=== PATIENT | male | born 1960 | race Caucasian/White ===

== ENCOUNTER 2025-02-08 10:17 | Outpatient (OUT) | payer OTHER, SELFPAY ==
--- OUTSIDE RECORDS SUMMARY | 2025-02-08 10:25 | XMS_ITS | Continuity of Care Document ---
Author Organization [facility] Address [address] [facility] [address] [place] [address] Insurance Providers Payer Plan Claims Address Claims Phone Policy Number Group Number Relation Employer Guarantor Name Guarantor Guarantor Address Guarantor Phone [address], [place] [address]wvl: [id number] [place] [address] [place], [place] [id number] [place] [address] [place], [place] [address]Cdlvoi /[id number] [facility] [address] Problems Unknown Problems Results Test Result Date/Time Value / Unit Interp. Refere [facility] Lab Report Corbin Luis.pdf Allergies, adverse reactions, alerts No known allergies and adverse reactions Medications No administered medications reported Vital Signs No vital signs reported Social History No smoking Hx information available
--- OUTSIDE RECORDS SUMMARY | 2025-02-08 10:25 | XMS_ITS | Clinical Summary ---
Author Organization [facility] Address [address] [facility], [address] [place] [address] Care Team Providers Care Membership Advisor Name Role Phone John Pickering MD Primary Care Provider [phone] Allergies No known active allergies Medications MedicationSigDispense QuantityRefillsLast FilledStart DateEnd DateStatus aspirin 81 MG EC tablet Take 81 mg by mouth dailyActive atorvastatin (LIPITOR) 80 MG tablet Take 80 mg by mouth dailyActive buPROPion (WELLBUTRIN XL) 300 MG extended release tablet Take 300 mg by mouth every morningActive carvedilol (COREG) 12.5 MG tablet Take 12.5 mg by mouth 2 times daily (with meals)Active clopidogrel (PLAVIX) 75 MG tablet Take 75 mg by mouth dailyActive canagliflozin (INVOKANA) 300 MG TABS tablet Take 300 mg by mouth every morning (before breakfast)Active SITagliptin (JANUVIA) 100 MG tablet Take 100 mg by mouth dailyActive metFORMIN (GLUCOPHAGE) 1000 MG tablet Take 1,000 mg by mouth 2 times daily (with meals)Active losartan (COZAAR) 25 MG tablet Take 25 mg by mouth dailyActive fenofibrate (TRICOR) 145 MG tablet Take 145 mg by mouth dailyActive gabapentin (NEURONTIN) 100 MG capsule TAKE 2 PILLS THREE TIMES PER DAY 180 capsule 06/20/2020ctive gabapentin (NEURONTIN) 300 MG capsule Take 1 capsule by mouth 3 times daily for 30 days. 90 capsule 06/30/2020ctive Family History Medical HistoryRelationNameCommentsCoronary Art DisFatherHeart DiseaseFather Coronary Art DisMotherHeart DiseaseMotherHigh Blood PressureMotherStrokeMother RelationNameStatusCommentsFatherMother Social History Tobacco UseTypesPacks/DayYears UsedDateSmoking Tobacco: Never AssessedSmokeless Tobacco: NeverSex and Gender InformationValueDate RecordedSex Assigned at Not on fileLegal AsnIcle6605/31/2012 8:43 PM ESTGender IdentityNot on fileSexual OrientationNot on file Last Filed Vital Signs Vital SignReadingTime TakenCommentsBlood Pressure--Pulse--Hbhqojsppuy91.3 ??C (97.3 ??F)06/30/2020 2:55 PM ESTRespiratory Rate--Oxygen Saturation--Inhaled Oxygen Concentration--Djtqgi193.4 kg (283 lb)06/30/2020 2:55 PM UCSOvfgdv282.9 cm (6')06/30/2020 2:55 PM ESTBody Mass Index38.38006/30/2020 2:55 PM EST Plan of Treatment Not on file Care Teams Team MemberRelationshipSpecialtyStart DateEnd John Pickering MD [address] [place] [address] PCP - GeneralFamily Medicine05/12/20
--- OUTSIDE RECORDS SUMMARY | 2025-02-08 10:25 | XMS_ITS | Clinical Summary ---
Author Organization [facility] Address [address] [place] [address] Care Team Providers Care Aircrewman Name Role Phone Bonnie Sands MD Primary Care Provider [phone] Allergies Active AllergyReactionsCriticalityNoted IpbpMhhsztdnBwmcqnxkht81/18/2022 GjfxyvjepsZxzws77/16/2021 Medications MedicationSigDispense QuantityRefillsLast FilledStart DateEnd DateStatus aspirin 81 mg chewable tablet Chew 1 tablet every day by oral route.Active atorvastatin (Lipitor) 80 mg tablet Take 1 tablet every day by oral route for 30 days.Active buPROPion XL (Wellbutrin XL) 300 mg 24 hr tablet Take 1 tablet every day by oral route.02/20/2016Active upsclerbjmt-twawwyase-tsaebdim 100-62.5-25 mcg blister with device Inhale 1 puff every day by inhalation route.Active allopurinol (Zyloprim) 300 mg tablet Take 300 mg by mouth in the morning.Active semaglutide (Ozempic) 1 mg/dose (4 mg/3 mL) pen injector Inject 1 mg under the skin every 7 (seven) days.Active bumetanide (Bumex) 2 mg tablet Indications:Benign hypertensive heart disease with heart failure (CMS/HCC)Take 1 tablet (2 mg) by mouth in the morning. 90 tablet ctive clopidogrel (Plavix) 75 mg tablet Indications:Benign hypertensive heart disease with heart failure (CMS/HCC)Take 1 tablet (75 mg) by mouth in the morning. 90 tablet ctive spironolactone (Aldactone) 25 mg tablet Indications:Benign hypertensive heart disease with heart failure (CMS/HCC)Take 1 tablet (25 mg) by mouth once daily as directed. 90 tablet ctive empagliflozin (Jardiance) 25 mg Take by mouth.Active carvedilol (Coreg) 25 mg tablet Indications:Benign hypertensive heart disease with heart failure (CMS/HCC)Take 1 tablet (25 mg) by mouth with breakfast and with evening meal. 180 tablet ctive hydrALAZINE (Apresoline) 100 mg tablet Indications:Benign hypertensive heart disease with heart failure (CMS/HCC)Take 1 tablet (100 mg) by mouth two times daily. 180 tablet ctive losartan (Cozaar) 25 mg tablet Indications:Benign hypertensive heart disease with heart failure (CMS/HCC)Take 1 tablet (25 mg) by mouth once daily as directed. 90 tablet ctive Active Problems ProblemNoted DateDiagnosed DateEncounter for screening, cfrlcnkjezg51/26/2024 Erectile ypgayxfyqfd70/26/2024Erectile dysfunction due to arterial insufficiency 03/16/20248242Kxnecpbsecgl97/26/3890Yiuadjatxhtqzd12/26/2024Hyperparathyroidism 03/16/2024Hypertensive awlfsniqbir49/26/2024Gout, rfiswoncper49/26/2024 Obstructive sleep apnea of adult03/16/2024Stage 3b chronic kidney disease 03/16/2024Type 2 diabetes jwekjgzd28/26/2024Type 2 diabetes mellitus with diabetic nmqjdrlqjqa76/26/2024Type 2 diabetes mellitus with diabetic qskdztixqrlnnu39/26/2024enign essential mzbtzqesrfzi49ody mass index (BMI) 39.0-39.9, adulthronic ischemic heart disease, jehjyddzaqh24hronic obstructive pulmonary disease, mxidsqrazss24ongestive heart ehhwtac5509/01/2019Coronary kxctfeqnvepgmlin11/13/2020Hypertensive lfyfxagy07/13/2020 Social History Tobacco UseTypesPacks/DayYears UsedDateSmoking Tobacco: FormerCigarettesQuit: 2008Smokeless Tobacco: Never Tobacco Cessation:Counseling Given: Not Answered Alcohol UseStandard Drinks/WeekCommentsYes2 (1 standard drink = 0.6 oz pure alcohol)UT Safety & EnvironmentAnswerDate RecordedFear of Current or Ex-Partner Not on file06/12/2023Emotionally AbusedNot on file06/12/2023hysically AbusedNot on file06/12/2023Sexually AbusedNot on file06/12/2023hysically or Sexually AbusedNot on file06/12/2023Sex and Gender InformationValueDate RecordedSex Assigned at BirthNot on fileLegal TilNodz4210/17/2021 10:16 PM EDTGender Identity Not on fileSexual OrientationNot on file Last Filed Vital Signs Vital SignReadingTime TakenCommentsBlood Cfydgzzo308/7403/16/2024 3:07 PM EST Vtxsb007703/16/2024 3:07 PM NFKOrqylehzmka81 ??C (98.6 ??F)05/29/2021 3:03 PM EST Respiratory Rate--Oxygen Aotaaqhhbi80%03/16/2024 3:07 PM ESTInhaled Oxygen Concentration--Pitrif108 kg (266 lb)03/16/2024 3:07 PM QUVMyomii825.9 cm (6') 03/16/2024 3:07 PM ESTBody Mass Index36.0803/16/2024 3:07 PM EST Plan of Treatment DateTypeDepartmentCare Team (Latest Contact Info)Cyrcufepjef63/19/2025 1:30 PM ESTOffice Visit [facility] [address] [place] [address] Guadalupe Sutton MD [address] [facility] [place] [address] Health MaintenanceDue DateLast DoneCommentsCT Ugvslcdjubzb66/07/1962Colonoscopy 2Colorectal Cancer Ofrsqbcuh89/07/1962Diabetes: Hemoglobin A1C 1961FIT-DNA1961FIT1961FOBT1960 0662Vzrutwdlxcxlj24/07/1962 Diabetes: Retinopathy Xxxwebixp95/07/1972Depression Qwnsbkfbh20/07/1974COVID-19 Vaccine (2024- season), 05/13/2023, 02/06/2021, Additional history existsInfluenza Vaccine (#1), 01/17/2023, 06/14/2022, Additional history existsAdult Etvfoef37 Pneumococcal Vaccine: Pediatrics (0 to 5 Years) and At-Risk Patients (6 to 64 Years)Iqzkcfddo75/24/2023Zoster XvhczbqxNsriabajc85/21/2025, 05/13/2024HIB VaccinesAged OutNo longer eligible based on patient's age to complete this topic HPV VaccinesAged OutNo longer eligible based on patient's age to complete this topicIPV VaccinesAged OutNo longer eligible based on patient's age to complete this topicMeningococcal B VaccineAged OutNo longer eligible based on patient's age to complete this topicMeningococcal VaccineAged OutNo longer eligible based on patient's age to complete this topicRotavirus VaccinesAged OutNo longer eligible based on patient's age to complete this topic Insurance Care Teams Team MemberRelationshipSpecialtyStart DateEnd Date Bonnie Sands MD [facility] [address] PCP [facility]03/06/23
--- OUTSIDE RECORDS SUMMARY | 2025-02-08 10:25 | XMS_ITS | Encounter Summary ---
Author Organization [facility] Address [id number] [place] [address] Care Team Providers Care Family Mediator Name Role Phone John Pickering MD Primary Care Provider [phone] Encounter Details DateTypeDepartmentCare Team (Latest Contact Info)Qefiecfwhdg20/07/2025Telephone [facility] [address] [place] [id number] Angie Bermudez CMA Social History Tobacco UseTypesPacks/DayYears UsedDateSmoking Tobacco: FormerCigarettesQuit: 12/11/2007Smokeless Tobacco: NeverAlcohol UseStandard Drinks/WeekCommentsYes0 (1 standard drink = 0.6 oz pure alcohol)6 pack of beer a dayChildcareAnswerDate AtitwyscHkppxgowpLrnzuvb75/12/2019EmploymentAnswerDate RecordedEmploymentUnknown 09/30/2018Purpose - LifeAnswerDate RecordedPurpose and direction in lifeUnknown 1Sex and Gender InformationValueDate RecordedSex Assigned at BirthNot on fileLegal NnnLmoq7211/24/2014 11:46 AM EDTGender IdentityNot on fileSexual OrientationNot on filedocumented as of this encounter Miscellaneous Notes * Telephone Encounter - Angie Bermudez CMA - 01/25/2025 11:34 AM EDT 01/25/25-OIL DISPENSER REFERRAL JENNIE AVILA ISCHEMIC HEART DISEASE, PHONED PT TO SCHEDULE APPT AND PER PT FOLLOWS WITH CARDIOLOGY AT [facility],PER PT APPT NOT NEEDED AT THIS TIME, JSL documented in this encounter Plan of Treatment Not on file documented as of this encounter Visit Diagnoses Not on filedocumented in this encounter Care Teams Team MemberRelationshipSpecialtyStart DateEnd Date John Pickering MD PCP - Hwiledy83/13/16documented as of this encounter
--- OUTSIDE RECORDS SUMMARY | 2025-02-08 10:25 | XMS_ITS | Clinical Summary ---
Author Organization [facility] Address [id number] [place] [address] Care Team Providers Care Product Management Manager Name Role Phone John Pickering MD Primary Care Provider [phone] Allergies Active AllergyReactionsCriticalityNoted QdffWjsdpcatGvzhktrqeuMttqx92/16/2021 Medications MedicationSigDispense QuantityRefillsLast FilledStart DateEnd DateStatus SITagliptin (JANUVIA) 100 mg tablet Take 100 mg by mouth daily.02/20/2016Active buPROPion XL (WELLBUTRIN XL) 300 mg 24 hr tablet Take 300 mg by mouth daily.02/20/2016Active carvediloL (COREG) 25 mg tablet Take 25 mg by mouth in the morning and 25 mg at noon and 25 mg before bedtime. Active clopidogreL (PLAVIX) 75 mg tablet Take 75 mg by mouth daily.Active dapagliflozin propanediol (FARXIGA ORAL) Take 5 mg by mouth daily.08/26/2020ctive losartan (COZAAR) 25 mg tablet Take 1 tablet (25 mg total) by mouth daily. 30 tablet ctive aspirin 81 mg chewable tablet Chew 81 mg and swallow in the morning.Active fenofibrate (TRICOR) 145 mg tablet Take 145 mg by mouth in the morning.Active atorvastatin (LIPITOR) 80 mg tablet Take 80 mg by mouth in the morning.Active spironolactone (ALDACTONE) 25 mg tablet Indications:Stage 3a chronic kidney disease (CMS-HCC)Take 0.5 tablets (12.5 mg total) by mouth in the morning and 0.5 tablets (12.5 mg total) before bedtime. 45 tablet ctive bumetanide (BUMEX) 2 mg tablet Indications:Stage 3a chronic kidney disease (CMS-HCC)Take 1 tablet (2 mg total) by mouth daily. 90 tablet ctive Active Problems No known active problems Encounters DateTypeDepartmentCare WstmAyebrmzxovi94/07/2025Telephone [facility] [address] [place] [address] Angie Bermudez CMA from Last 3 Months Family History Medical HistoryRelationNameCommentsHeart failureBrotherKidney diseaseBrother Kidney failureBrotherRelationNameStatusCommentsBrotherDeceased Social History Tobacco UseTypesPacks/DayYears UsedDateSmoking Tobacco: FormerCigarettesQuit: 12/11/2007Smokeless Tobacco: NeverAlcohol UseStandard Drinks/WeekCommentsYes0 (1 standard drink = 0.6 oz pure alcohol)6 pack of beer a dayChildcareAnswerDate PdihzjqtOqnkmwobiXgynaeo20/12/2019EmploymentAnswerDate RecordedEmploymentUnknown 09/30/2018Purpose - LifeAnswerDate RecordedPurpose and direction in lifeUnknown 05/16/2020ex and Gender InformationValueDate RecordedSex Assigned at BirthNot on fileLegal YpbYlau7011/24/2014 11:46 AM EDTGender IdentityNot on fileSexual OrientationNot on file Last Filed Vital Signs Vital SignReadingTime TakenCommentsBlood Sdhzenvv037/6204 1:29 PM EDT Nqobx8789 1:29 PM CBNSwvzzcnpsus26.7 ??C (98 ??F)08/13/2021 1:27 PM EDT Respiratory Lilh0433 1:17 AM EDTOxygen Iulbacvkki21%08/13/2021 1:27 PM EDTon room airInhaled Oxygen Concentration--Wxshin376.9 kg (293 lb)08/13/2021 1:27 PM WGIAltwju176.9 cm (6')08/13/2021 1:27 PM EDTBody Mass Index39.74 08/13/2021 1:27 PM EDT Plan of Treatment Health MaintenanceDue DateLast DoneCommentsStatin Use: Zhbwfqfxypjdcx19/07/1962 Depression Zistiixfp12/07/1974Tobacco Tztfdsugh29/07/1974Adult BMI Screening 06/26/1979DTaP,Tdap and Td Vaccines (1 - Tdap)1980Zoster (Shingles) Vaccine (2 of 3)501/5COVID-19 Vaccine (3 - season) /, 01/08/2021Influenza Grvgukd76/, 02/20/2021, 01/27/2019 Medical Devices Not on file Insurance * Guarantor: Corbin Smith TypeRelation to PatientDate of PhoneBilling AddressPersonal/CfmlkpEngy35/07/1961 [facility] [place] [address] * Guarantor: Corbin Smith TypeRelation to PatientDate of PhoneBilling AddressPersonal/BlgivlYzyy72/07/1961 [address] [place] [address] Care Teams Team MemberRelationshipSpecialtyStart DateEnd Date John Pickering MD [facility]04/02/16
[2025-02-08 11:25] LABS: Alanine Aminotransferase 37 U/L (16-63); Albumin Globulin Ratio 0.9; Albumin Level 3.3 g/dL (3.4-5.0); Alkaline Phosphatase 105 U/L (46-116); Anion Gap 12.6; Aspartate Amino Transferase 20 U/L (15-37); Blood Urea Nitrogen 14.0 mg/dL (7.0-18.0); Calcium 8.8 mg/dL (8.5-10.1); Carbon Dioxide 28.2 mmol/L (21.0-32.0); Chloride 103 mmol/L (98-107); Estimated GFR (African America >60 (>=60 mL/min/1.73m^2); Estimated GFR (Non-African Ame 51 (>=60 mL/min/1.73m^2); Globulin 3.6 g/dL; Glucose 141 mg/dL (74-106); Potassium 3.8 mmol/L (3.5-5.1); Sodium 140 mmol/L (136-145); Total Protein 6.9 g/dL (6.4-8.2)
== END 2025-02-08 10:18 | disposition home or self-care (01) ==
LOC: LAB 10:21
PROVIDERS: PCP Family Medicine; Visit Provider Chiropractor
DX: N18.9 Chronic kidney disease, unspecified (principal); E11.9 Type 2 diabetes mellitus without complications; J30.9 Allergic rhinitis, unspecified
CPT/HCPCS: 36415; 80053

== ENCOUNTER 2025-03-24 08:44 | Outpatient (OUT) | payer OTHER, SELFPAY ==
--- NOTE | 2025-03-24 09:15 | NM_ITS ---
Patient Name: ZENAIDA SILVA MR#: [id number] : 1960 Exam Date: 03/24/2025 Ordering Doctor: DR JENNIE AVILA M.D. RADIOLOGY REPORT PROCEDURE: NM BUSHRA PERF SPECT REST STR COMPARISON: None. INDICATIONS: SILENT ISCHEMIA, ACUTE ON CHRONIC HEART FAILURE TECHNIQUE: Exam Description: Stress/Rest two day protocol gated SPECT Rest Imagin.6 mCi Tc-99m Cardiolite IV on 03/28/2025 Stress Imaging 25.1 mCi Tc-99m Cardiolite IV on 03/24/2025 Exercise Protocol: 0.4 mg Lexiscan given IV Heart Rate (bpm): Rest: 71 Max: 88 PMHR: 56 Blood Pressure: Rest: 121/63 Max: 157/62 Symptoms: Rest and peak stress ECG findings were pending and the exercise portion of the study was pending per attending physician [facility] . For more details please see separate cardiac stress test report. FINDINGS: QUALITY OF STUDY: Fair PERFUSION DEFECT: LOCATION: Inferior SIZE: Medium SEVERITY: Mild TYPE: Fixed with adequate contractility consistent with diaphragmatic attenuation WALL MOTION: Normal LV SIZE: 91 mL. TID / TCD: 1.0 LVEF: Calculated EF 68%. SUMMARY: Normal myocardial perfusion imaging study CONCLUSION: Normal myocardial perfusion nuclear images without evidence of ischemia or infarction Normal left ventricle systolic function, EF 68% No transient ischemic dilatation, TID 1.0 EKG portion of stress test is reported separately Dictated by: Elisabeth Wolfe MD on 03/28/2025 at 17:49 Approved by: Elisabeth Wolfe MD on 03/28/2025 at 17:52
--- NOTE | 2025-03-24 09:55 | PC.NURSE ---
Nursing Note Cardiac Stress Test Reviewed: Medication, allergies and patient history reviewed. Stress Test: [ x ]? Patient tolerated stress test well. [ ]? Patient unable to tolerate walking on treadmill. Switched to Lexiscan stress test. [ x ]? No chest pain noted per patient [ ]? Chest pain that resolved prior to leaving stress lab. [x ]? No dyspnea noted. [ ]? Dyspnea that resolved prior to leaving stress lab. [ x ]? Patient left stress lab asymptomatic and hemodynamically stable. [ ]? Patient taken to the Emergency Room due to non-resolving symptoms following stress test. [ ]? Patient achieved target heart rate. [ ]? Patient unable to achieve target heart rate. [ ]? Aminophylline administered as reversal agent to Lexiscan (Regadenoson). [ ]? Nitro administered. Nursing Comments: Patient denies chest pain or SOB. Blood pressure elevated and then returned back to baseline in recovery. Patient ambulated to cafe without difficulty with Citrus.
[2025-03-24] MEDS: REGADENOSON 0.4 MG/5 ML SYRINGE IV (10:35)
--- NOTE | 2025-03-25 18:07 | P.STRESS_ITS ---
Stress Test Stress Test Requesting physician: Guadalupe Sutton Procedure: This was a Lexiscan stress test with myocardial perfusion imaging performed at the [facility] on 03/24/2025 Intravenous line was secured. The patient was attached to electrocardiographic monitoring. Baseline vital signs and ECG were obtained. Lexiscan 0.4 mg was administered intravenously followed by administration of Cardiolite. The patient then went on to obtain myocardial perfusion imaging. Resting heart rate was 71 bpm and peak heart rate was 88 bpm. Resting blood pressure was 121/63 and peak blood pressure was 157/62. General Information: Reason for Stress Test: Silent ischemia, heart failure with preserved ejection fraction. Cardiac History and Risk Factors: Hypertension, coronary artery bypass graft surgery. Resting 12 - Lead Electrocardiogram: Normal sinus rhythm, normal ECG. Stress Test: Protocol: Pharmacologic stress with Lexiscan. Exercise Capacity: Not assessed. Blood Pressure Response: Resting normal blood pressure, hypertensive response to Lexiscan. Rhythm: Normal sinus rhythm, no arrhythmias. ST - Response: No ischemic ST changes seen. Patient Response: No symptoms reported. Interpretation: 1. No evidence of ischemic ECG changes following infusion of Lexiscan. 2. Myocardial perfusion images will be reported separately.
== END 2025-03-24 08:45 | disposition home or self-care (01) ==
LOC: CARD 08:44
PROVIDERS: PCP Family Medicine; Visit Provider Internal Medicine Interventional Cardiology
DX: I99.8 Other disorder of circulatory system (principal); I50.33 Acute on chronic diastolic (congestive) heart failure
CPT/HCPCS: 78452; 93017; A9500; J2785

== ENCOUNTER 2025-03-28 08:50 | Outpatient (OUT) | payer OTHER, SELFPAY ==
--- NOTE | 2025-03-28 08:55 | CA_ITS ---
Patient Name: ZENAIDA SILVA MR#: [id number] : 1960 Exam Date: 03/28/2025 Ordering Doctor: DR JENNIE AVILA M.D. ECHOCARDIOGRAM REPORT PROCEDURE: CA ECHO DOPPLER COMPLETE INDICATIONS: Acute on chronic heart failure w/preserved EF COMPARISON: None. DESCRIPTION: COMPLETE ECHOCARDIOGRAM Real-time transthoracic echocardiography with 2D, M-mode, spectral and color flow Doppler performed. QUALITY: Technical quality was limited because of lung artifact. LEFT VENTRICLE: Normal chamber size. Severe concentric left ventricular hypertrophy. Global left ventricular systolic function is normal. No wall motion abnormalities. Visual estimation of left ventricular ejection fraction is 55-60%. LV EF: Normal left ventricular ejection fraction, (>55%). DIASTOLIC: Normal diastolic function ATRIAL SEPTUM: Visually appears intact LEFT ATRIUM: Mild dilatation. RIGHT ATRIUM: Normal chamber size. RIGHT VENTRICLE: Normal chamber size. Normal right ventricular systolic function. TRICUSPID VALVE: Normal mobility and thickness. No stenosis with trivial regurgitation. No evidence of pulmonary hypertension.The RVSp measures 10mmHg. MITRAL VALVE: Mildly thickened with normal mobility. No evidence of mitral valve stenosis. Mild mitral annular calcification. No mitral regurgitation. AORTIC VALVE: Normal trileaflet appearance. Thickened aortic valve. Normal leaflet mobility. No evidence of aortic valve stenosis. There is no signifigant change in Doppler velocities with valsalva to indicate any outflow track obstruction.No aortic regurgitation. AORTIC ROOT: Normal diameter and appearance. The aortic root measures 3.2cm PULMONIC VALVE: Normal thickness and mobility. No stenosis. Trivial regurgitation. PERICARDIUM: No evidence of pericardial effusion. IVC: Collapes with inspirations. The IVC is normal and measures 1.1cm. PLEURA: CONCLUSION: Severe concentric left ventricle hypertrophy Normal left ventricle systolic function without wall motion abnormalities, ejection fraction 55 to 60% Normal left ventricular diastolic function Normal right ventricle size and systolic function Normal right-sided pressures, RVSP 10 mmHg Mildly dilated left atrium No significant valvular abnormalities Adult Echocardiography Procedure Report Left Ventricle LVEDD (3.7 - 5.6 cm): 3.56 cm LVESD (2.2 - 4.0 cm): 2.72 cm LVIVS thickness (0.6 - 1.2 cm): 2.16 cm LVPW thickness (0.5 - 1.0 cm): 1.57 cm e': 0.09 m/s E - e': 9.24 LVOT Max Gradient: 1.20 mm[Hg], 1.04 mm[Hg], 1.57 mm[Hg] LVOT Area (cm2): 0.59 m/s, 0.51 m/s Peak Velocity (LVOT): 0.55 m/s, 0.63 m/s, 0.51 m/s Mean Velocity (LVOT): 0.39 m/s LVOT Diameter 2.22 cm Left Ventricular Ejection Fraction: Left Atrium LA Volume Index (2D A2C): 43.67 ml/m2 Left Atrium Systolic Dimension: 4.04 cm Mitral Valve MV E to A Ratio: 1.60 MV Max Gradient: MV Mean Gradient: Mitral Valve A-Wave Peak Velocity: 0.53 m/s Mitral Valve E-Wave Peak Velocity: 0.85 m/s Cardiovascular Orifice Area: Right Ventricle RV Internal Diastolic Dimension: 3.29 cm Aorta AO Root Diam: 3.23 cm Ascending Ao Diam: 2.69 cm Aortic Valve AoV Area (Peak Ramone): 2.17 cm2, 2.03 cm2, 1.88 cm2, 1.88 cm2 AoV Area (VTI): 2.51 cm2, 2.40 cm2 Deceleration Oxford: Pressure Half-Time: Peak Velocity(Antegrade Flow): 1.05 m/s Peak Gradient(Antegrade Flow): 4.39 mm[Hg] Mean Velocity(Antegrade Flow): 0.65 m/s Mean Gradient(Antegrade Flow): 1.99 mm[Hg] Velocity Time Integral: 19.07 cm Tricuspid Valve Peak Velocity (Regurgitant Flow): 1.34 m/s Peak Velocity: Pulmonic Valve Mean Gradient: Mean Velocity: Peak Velocity: 1.26 m/s Peak Gradient: 6.16 mm[Hg], 6.46 mm[Hg] Right Atrium Right Atrium Systolic Pressure: 48.99 ml, 48.99 ml Dictated by: Elisabeth Wolfe MD on 03/28/2025 at 17:01 Approved by: Elisabeth Wolfe MD on 03/28/2025 at 17:10
== END 2025-03-28 08:51 | disposition home or self-care (01) ==
LOC: CARD 08:50
PROVIDERS: PCP Family Medicine; Visit Provider Internal Medicine Interventional Cardiology
DX: I99.8 Other disorder of circulatory system (principal); I50.33 Acute on chronic diastolic (congestive) heart failure
CPT/HCPCS: 93306